=== PATIENT | male | born 1985 | race African-American/Black ===

== ENCOUNTER 2016-12-10 21:57 | Emergency (ER) | payer OTHER ==
[2016-12-10 22:04] VITALS: RESP 20
[2016-12-10] MEDS ORDERED: ONDANSETRON ODT 4 MG TAB PO STA (22:28)
[2016-12-10] MEDS ORDERED: IBUPROFEN 600 MG TAB PO STA (22:28)
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
--- NOTE | 2016-12-10 22:55 | XR ---
EXAM: XR Chest, 2 Views. CLINICAL HISTORY: Reason: Pain TECHNIQUE: Frontal and lateral views of the chest. COMPARISON: No relevant prior studies available. FINDINGS: Lungs: Lungs are clear. Pleural space: No evidence of pleural effusion or pneumothorax. Heart: Heart size is within normal limits. Mediastinum: Mediastinal structures are within normal limits. Bones/joints: Imaged bony thorax is unremarkable. IMPRESSION: No evidence of active chest disease.
[2016-12-10 23:41] VITALS: BP 123/56; PULSE 101; TEMP 101
== END 2016-12-10 23:39 | disposition home or self-care (01) ==
LOC: EC 21:57
DX: J02.9 Acute pharyngitis, unspecified (principal); R11.0 Nausea; F17.200 Nicotine dependence, unspecified, uncomplicated
CPT/HCPCS: 71020; 87081; 87430; 87502; 99283

== ENCOUNTER → 2018-10-20 | Outpatient (CLI) | payer OTHER ==
--- NOTE | 2018-10-20 23:36 | MR ---
EXAMINATION TYPE: MR lumbar spine wo/w con DATE OF EXAM: 10/20/2018 COMPARISON: None HISTORY: Low back pain TECHNIQUE: Multiplanar, multisequence images of the lumbar spine were acquired utilizing [address] gadolinium contrast. Lumbar vertebra have normal alignment. There is slight narrowing and decreased signal in the disc at L5-S1. There is posterior disc herniation at L5-S1 in the midline. There is slight effacement of the thecal sac. There is developmentally adequate canal and no significant spinal stenosis. The neural fo ramina are fairly well-maintained. Lumbar nerve roots appear normal. There is no compression fracture . There is no paraspinal mass. I see no focal bone destruction. Contrast images show no pathologic enhancement. IMPRESSION: Moderate posterior L5-S1 lumbar disc herniation. No spinal stenosis. There is developmentally large s marcia canal. No fracture.
== END | disposition home or self-care (01) ==
LOC: RADMRIMAIN 13:12
PROVIDERS: ATTEND Family Medicine
DX: M51.27 Other intervertebral disc displacement, lumbosacral region (principal)
CPT/HCPCS: 72158; A9585

== ENCOUNTER 2022-12-23 20:56 | Emergency (ER) | payer OTHER ==
[2022-12-23 21:00] VITALS: TEMP 98.2
--- NOTE | 2022-12-23 21:23 | XR ---
EXAMINATION TYPE: XR hand complete RT, XR wrist complete RT DATE OF EXAM: 12/23/2022 9:11 PM INDICATION: Patient age:Male; 37 years old; Reason for study: pain; COMPARISON: None TECHNIQUE: Frontal, lateral and oblique views of the right hand and wrist were obtained. FINDINGS: Normal alignment of the visualized joints. No acute osseous pathology is identified. No e vidence of soft tissue swelling. There area 2 tubular structures are present in the anterior aspect of the medial wrists projecting ov er the ulnar head as well as another piece projecting over the first metacarpal anteriorly. IMPRESSION: 1. No acute osseous pathology. 2. 2 tubular structures correlate for radiopaque foreign bodies.
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
[2022-12-23] MEDS ORDERED: KETOROLAC 15 MG/ML 1 ML VIAL IM STA (21:49)
[2022-12-23 22:06] VITALS: BP 160/80; PULSE 68; RESP 16
== END 2022-12-23 22:11 | disposition home or self-care (01) ==
LOC: EC 20:56
DX: M25.531 Pain in right wrist (principal); J45.909 Unspecified asthma, uncomplicated; F17.200 Nicotine dependence, unspecified, uncomplicated; F12.90 Cannabis use, unspecified, uncomplicated
CPT/HCPCS: 73110; 73130; 99283; 96372; 29125; J1885

== ENCOUNTER → 2023-10-15 | Outpatient (CLI) | payer OTHER ==
--- NOTE | 2023-10-16 08:47 | NM ---
EXAMINATION TYPE: NM hepatobiliary wo EF DATE OF EXAM: 10/15/2023 3:23 PM COMPARISON: None CLINICAL INDICATION:Male, 38 years old with history of R10.11 RUQ pain; TECHNIQUE: The patient was given 5.2 mCi of Technetium 99m-Mebrofenin as a radiotracer and multiple scintigraphic images were obtained of the abdomen. Gallbladder function was also assessed after the a dministration of ensure drink and additional scintigraphic images were obtained of the abdomen. A reg ion of interest was drawn over the gallbladder and a timing activity curve was generated. The gallbla dder ejection fraction was calculated. FINDINGS: Normal uptake of radiotracer was identified within the liver with excretion into the hepatic and comm on biliary ducts and small bowel at 6 minutes the gallbladder is never definitively visualized. IMPRESSION: The gallbladder was not visualized at the end of 60 minutes. Radiotracer was washed out of the liver and the patient had to leave. The exam was terminated at that time. Cholecystitis is not ruled out.
== END | disposition home or self-care (01) ==
LOC: RADNMMAIN 12:53
PROVIDERS: ATTEND Family Medicine
DX: R93.2 Abnormal findings on diagnostic imaging of liver and biliary tract (principal); R10.11 Right upper quadrant pain
CPT/HCPCS: 78226; A9537

== ENCOUNTER 2023-12-04 10:58 | Emergency (ER) | payer OTHER ==
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
[2023-12-04] MEDS: SODIUM CHLORIDE 0.9% 1,000 ML IV STA (11:24)
[2023-12-04] MEDS: KETOROLAC 15 MG/ML 1 ML VIAL IVP STA ×2 (11:32→15:37)
[2023-12-04] MEDS: HYDROmorphone 0.5 MG/0.5 ML SYRINGE IVP STA ×2 (11:37→15:38)
[2023-12-04 11:48] LABS: Basophils % (A) 0 %; Eosinophils # (A) 0.5 k/uL (0-0.7); Eosinophils % (A) 4 %; HGB 15.6 gm/dL (13.0-17.5); Lymphocytes # (A) 1.8 k/uL (1.0-4.8); Lymphocytes % (A) 16 %; MCH 27.7 pg (25.0-35.0); MCHC 31.9 g/dL (31.0-37.0); MCV 86.9 fL (80.0-100.0); Mean Platelet Volume 7.9; Monocytes # (A) 0.3 k/uL (0-1.0); Monocytes % (A) 3 %; Neutrophils # (A) 8.3 k/uL (1.3-7.7); Neutrophils % (A) 75 %; Platelet Count 287 k/uL (150-450); RBC 5.64 m/uL (4.30-5.90); RDW 13.8 % (11.5-15.5); WBC 11.2 k/uL (3.8-10.6)
[2023-12-04 11:55] LABS: Appearance,Urine Clear (Clear); Bilirubin,Urine Negative (Negative); Blood,Urine Trace (Negative); Color,Urine Yellow; Glucose,Urine (UA) Negative (Negative); Ketones,Urine Negative (Negative); Leukocyte Esterase,Urine Small (Negative); Mucus,Urine Few /hpf; Nitrite,Urine Negative (Negative); Protein,Urine Trace (Negative); RBC,Urine 1 /hpf (0-5); Specific Gravity,Urine 1.024 (1.001-1.035); Squamous Epithelial Cell,Urine 1 /hpf (0-4); Urobilinogen,Urine <2.0 mg/dL (<2.0); WBC,Urine 13 /hpf (0-5)
[2023-12-04 12:05] LABS: ALT 24 U/L (4-49); African American GFR (CKD) >90 (>60 ml/min/1.73 sqM); Albumin 4.3 g/dL (3.5-5.0); Amylase 54 U/L (30-110); Anion Gap 10 mmol/L; Blood Urea Nitrogen 9 mg/dL (9-20); Calcium 9.6 mg/dL (8.4-10.2); Carbon Dioxide 21 mmol/L (22-30); Chloride 106 mmol/L (98-107); Glucose 124 mg/dL (74-99); Lipase 31 U/L (23-300); Non-African American GFR(CKD) >90 (>60 ml/min/1.73 sqM); Sodium 137 mmol/L (137-145); Total Bilirubin 0.7 mg/dL (0.2-1.3); Total Protein 7.2 g/dL (6.3-8.2)
[2023-12-04 12:24] LABS: AST 31 U/L (17-59); Alkaline Phosphatase 83 U/L (38-126); Potassium 4.9 mmol/L (3.5-5.1)
--- NOTE | 2023-12-04 12:54 | US ---
EXAMINATION TYPE: US gallbladder DATE OF EXAM: 12/04/2023 COMPARISON: ID 10/15/2023 CLINICAL INDICATION: Male, 38 years old with history of RUQ pain; RUQ pain. TECHNIQUE: Multiple sonographic images of the right upper quadrant are obtained. FINDINGS: EXAM MEASUREMENTS: Liver Length: 16.3 cm Gallbladder Wall: 0.25 cm CBD: 0.36 cm Right Kidney: 13.1 x 6.7 x 4.6 cm FIBRE CEMENT MOULDER NOTES: Limited due to gas. Pancreas: Not well seen. Liver: Coarse in echotexture. Gallbladder: Appears hydropic measuring 11.0 cm in length. Multiple gallstones near the gallbladder neck. Evidence for sonographic Olguin's sign: Multiple hyperechoic foci with posterior shadowing seen within the neck, largest measures 1.1 x 1.3 x 0.8 cm. CBD: Appears wnl Right Kidney: Enlarged. IMPRESSION: Hydropic gallbladder with multiple gallstones in the gallbladder neck measuring up to 13 mm.
[2023-12-04 16:13] VITALS: BP 136/68; PULSE 87; RESP 18; TEMP 98
== END 2023-12-04 15:50 | disposition home or self-care (01) ==
LOC: EC 10:58
DX: K80.70 Calculus of gallbladder and bile duct without cholecystitis without obstruction (principal); F17.210 Nicotine dependence, cigarettes, uncomplicated
CPT/HCPCS: 36415; 80053; 82150; 83605; 83690; 85025; 81001; 76705; 99406; 99285; 96374; 96375; 96376 ×2; 96361; J1885; J1170

== ENCOUNTER 2024-01-13 18:09 | Emergency (ER) | payer OTHER ==
[2024-01-13 18:32] VITALS: BP 138/81; PULSE 131; RESP 18; TEMP 99.4
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
== END 2024-01-13 19:11 | disposition left against medical advice (07) ==
LOC: EC 18:09
DX: J02.9 Acute pharyngitis, unspecified (principal); F17.200 Nicotine dependence, unspecified, uncomplicated; F12.90 Cannabis use, unspecified, uncomplicated; Z53.29 Procedure and treatment not carried out because of patient's decision for other reasons
CPT/HCPCS: 87636; 87651; 99283

== ENCOUNTER 2024-03-11 21:19 | Emergency (ER) | payer OTHER ==
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
[2024-03-11] MEDS: SODIUM CHLORIDE 0.9% 1,000 ML IV STA (22:20)
[2024-03-11] MEDS: MORPHINE SULFATE 4 MG/ML SYRINGE IVP STA (22:20)
[2024-03-11] MEDS: KETOROLAC 15 MG/ML 1 ML VIAL IVP STA (22:20)
[2024-03-11 22:40] LABS: Basophils % (A) 0 %; Eosinophils # (A) 0.4 k/uL (0-0.7); Eosinophils % (A) 5 %; HCT 43.6 % (39.0-53.0); HGB 14.2 gm/dL (13.0-17.5); Lymphocytes # (A) 1.6 k/uL (1.0-4.8); Lymphocytes % (A) 19 %; MCH 29.1 pg (25.0-35.0); MCHC 32.6 g/dL (31.0-37.0); Mean Platelet Volume 7.6; Monocytes # (A) 0.5 k/uL (0-1.0); Monocytes % (A) 6 %; Neutrophils # (A) 5.5 k/uL (1.3-7.7); Neutrophils % (A) 68 %; Platelet Count 284 k/uL (150-450); WBC 8.2 k/uL (3.8-10.6)
[2024-03-12 00:12] LABS: ALT 23 U/L (4-49); AST 22 U/L (17-59); African American GFR (CKD) >90 (>60 ml/min/1.73 sqM); Albumin 3.9 g/dL (3.5-5.0); Alkaline Phosphatase 74 U/L (38-126); Amylase 48 U/L (30-110); Anion Gap 4 mmol/L; Blood Urea Nitrogen 13 mg/dL (9-20); Calcium 8.8 mg/dL (8.4-10.2); Carbon Dioxide 26 mmol/L (22-30); Chloride 110 mmol/L (98-107); Glucose 110 mg/dL (74-99); Lipase 85 U/L (23-300); Non-African American GFR(CKD) >90 (>60 ml/min/1.73 sqM); Potassium 4.2 mmol/L (3.5-5.1); Sodium 140 mmol/L (137-145); Total Bilirubin 0.3 mg/dL (0.2-1.3); Total Protein 6.4 g/dL (6.3-8.2)
[2024-03-12] MEDS: HYDROmorphone 1 MG/ML 1 ML SYRINGE IVP STA (01:35)
--- NOTE | 2024-03-12 01:58 | US ---
EXAM: US Abdomen Limited, Gallbladder CLINICAL HISTORY: ITS.REASON US Reason: RUQ pain TECHNIQUE: Real-time ultrasound of the right upper quadrant with image documentation. COMPARISON: Ultrasound gallbladder: 12/04/2023. FINDINGS: Gallbladder: Normal Wall thickness: 2.3 mm.. Redemonstrated multiple intraluminal gallstones/cholelithiasis. Reported negative sonographic Olguin sign. Common bile duct: Mildly dilated : 5.5 mm in diameter.. No stones. Pancreas: Unremarkable as visualized. The tail of the pancreas is obscured by bowel gas. Other findings: Liver measures 16.7 cm in length. Coarsened parenchymal echotexture, concerning for chronic liver disease in the appropriate clinical context. Right kidney measures 13.1 x 5.6 x 4.2 cm in size. No hydronephrosis or discernible mass. No obvious calculi.. IMPRESSION: Cholelithiasis. Normal bladder wall thickness. Reported negative sonographic Olguin sign. Borderline/mildly enlarged CBD: 5.5 mm in diameter. Coarsened liver parenchymal echotexture, concerning for chronic liver disease. Clinical correlation recommended. An enlarged right kidney. No hydronephrosis or obvious calculi.. .
[2024-03-12 03:04] VITALS: BP 145/88; PULSE 67; RESP 18; TEMP 98.2
== END 2024-03-12 03:01 | disposition home or self-care (01) ==
LOC: EC 21:19
DX: K80.70 Calculus of gallbladder and bile duct without cholecystitis without obstruction (principal); F17.200 Nicotine dependence, unspecified, uncomplicated
CPT/HCPCS: 36415; 80053; 82150; 83605; 83690; 85025; 76705; 99284; 96374; 96375 ×2; 96361; J2270; J1170; J1885

== ENCOUNTER 2024-05-04 13:57 | Emergency (ER) | payer OTHER ==
[2024-05-04 14:09] VITALS: RESP 18
[2024-05-04] MEDS: IBUPROFEN 600 MG TAB PO STA (14:27)
[2024-05-04] MEDS: ACETAMINOPHEN TAB 500 MG TAB PO STA (14:28)
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
[2024-05-04 16:32] VITALS: BP 129/77; PULSE 91; TEMP 98.9
== END 2024-05-04 16:33 | disposition home or self-care (01) ==
LOC: EC 13:57
CPT/HCPCS: 36415; 86308; 87651; 99283

== ENCOUNTER 2024-05-10 08:39 | Emergency (ER) | payer OTHER ==
[2024-05-10] MEDS: HYDROmorphone 0.5 MG/0.5 ML SYRINGE IVP STA (09:08)
[2024-05-10] MEDS: SODIUM CHLORIDE 0.9% 1,000 ML IV STA (09:11)
[2024-05-10] MEDS: KETOROLAC 15 MG/ML 1 ML VIAL IVP STA (09:12)
[2024-05-10] MEDS: HYDROmorphone 1 MG/ML 1 ML SYRINGE IVP STA (09:13)
[2024-05-10 09:38] LABS: Basophils # (A) 0.1 k/uL (0-0.2); Basophils % (A) 1 %; Eosinophils # (A) 0.5 k/uL (0-0.7); Eosinophils % (A) 4 %; HCT 45.9 % (39.0-53.0); HGB 14.6 gm/dL (13.0-17.5); Lymphocytes # (A) 1.9 k/uL (1.0-4.8); Lymphocytes % (A) 16 %; MCH 28.1 pg (25.0-35.0); MCHC 31.8 g/dL (31.0-37.0); MCV 88.2 fL (80.0-100.0); Mean Platelet Volume 7.4; Monocytes # (A) 0.4 k/uL (0-1.0); Monocytes % (A) 4 %; Neutrophils % (A) 74 %; Platelet Count 333 k/uL (150-450); RDW 13.5 % (11.5-15.5); WBC 12.1 k/uL (3.8-10.6)
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
[2024-05-10 09:53] LABS: ALT 21 U/L (4-49); AST 24 U/L (17-59); African American GFR (CKD) >90 (>60 ml/min/1.73 sqM); Albumin 4.1 g/dL (3.5-5.0); Alkaline Phosphatase 75 U/L (38-126); Amylase 43 U/L (30-110); Anion Gap 6 mmol/L; Blood Urea Nitrogen 13 mg/dL (9-20); Calcium 9.3 mg/dL (8.4-10.2); Carbon Dioxide 32 mmol/L (22-30); Chloride 106 mmol/L (98-107); Glucose 147 mg/dL (74-99); Lipase 42 U/L (23-300); Non-African American GFR(CKD) 90 (>60 ml/min/1.73 sqM); Potassium 4.5 mmol/L (3.5-5.1); Sodium 144 mmol/L (137-145); Total Bilirubin 0.3 mg/dL (0.2-1.3); Total Protein 6.9 g/dL (6.3-8.2)
--- NOTE | 2024-05-10 10:10 | US ---
EXAMINATION TYPE: US gallbladder DATE OF EXAM: 05/10/2024 COMPARISON: US 2023 CLINICAL INDICATION: Male, 38 years old with history of RUQ pain; TECHNIQUE: Multiple sonographic images of the right upper quadrant are obtained. FINDINGS: EXAM MEASUREMENTS: Liver Length: 15.3 cm Gallbladder Wall: 0.2 cm CBD: 0.4 cm Right Kidney: 9.8 x 4.6 x 5.5 cm Pancreas: visualized portions wnl, limited by overlying midline bowel gas Liver: course echotexture Gallbladder: cholelithiasis. No abnormal distention, shadowing stones, or surrounding fluid. Evidence for sonographic Olguin's sign: no CBD: wnl Right Kidney: visualized portions wnl, upper pole and lower pole limited by overlying bowel gas . No hydronephrosis. IMPRESSION: No gallstones or biliary ductal dilatation. No specific sonographic abnormality seen along the right upper quadrant.
[2024-05-10] MEDS: ACET/COD 300 MG/30 MG STARTER PACK 6 TAB BTL PO STA (11:26)
[2024-05-10 11:36] VITALS: BP 144/87; PULSE 61; RESP 18; TEMP 98
== END 2024-05-10 11:35 | disposition home or self-care (01) ==
LOC: EC 08:39
CPT/HCPCS: 36415; 76705; 80053; 82150; 83605; 83690; 85025; 96361; 96374; 96375; 96376; 99284

== ENCOUNTER 2024-09-01 05:07 | Emergency (ER) | payer OTHER ==
[2024-09-01] MEDS: SODIUM CHLORIDE 0.9% 1,000 ML IV STA (05:38)
[2024-09-01] MEDS: MORPHINE SULFATE 4 MG/ML SYRINGE IVP STA (05:39)
[2024-09-01] MEDS: KETOROLAC 15 MG/ML 1 ML VIAL IVP STA (05:39)
[2024-09-01] MEDS: ONDANSETRON 4 MG/2 ML VIAL IVP STA (05:39)
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
[2024-09-01 08:02] LABS: Appearance,Urine Cloudy (Clear); Bilirubin,Urine Negative (Negative); Blood,Urine Negative (Negative); Color,Urine Colorless; Glucose,Urine (UA) Negative (Negative); Ketones,Urine Negative (Negative); Leukocyte Esterase,Urine Large (Negative); Mucus,Urine Rare /hpf; Nitrite,Urine Negative (Negative); PH, Urine 7.5 (5.0-8.0); Protein,Urine Negative (Negative); Specific Gravity,Urine 1.016 (1.001-1.035); Squamous Epithelial Cell,Urine <1 /hpf (0-4); Urobilinogen,Urine <2.0 mg/dL (<2.0); WBC,Urine 129 /hpf (0-5)
--- NOTE | 2024-09-01 08:49 | US ---
EXAMINATION TYPE: US gallbladder DATE OF EXAM: 09/01/2024 COMPARISON: 05/10/24 CLINICAL INDICATION: Male, 39 years old with history of abdominal pain; RUQ pain, hx of gallstones TECHNIQUE: Grayscale and color Doppler imaging of the right upper quadrant was performed. FINDINGS: EXAM MEASUREMENTS: Liver Length: 13.3 cm Gallbladder Wall: 0.2 cm CBD: 0.2 cm Right Kidney: 11.0 x 5.1 x 4.6 cm B[facility] TANNER NOTES: Pancreas: parts seen appear wnl Liver: heterogeneous Gallbladder: gallstones seen in neck Evidence for sonographic Olguin's sign: No CBD: wnl Right Kidney: wnl IMPRESSION: 1. Cholelithiasis [facility], , 09/01/2024 8:46 AM
[2024-09-01 08:54] LABS: Basophils # (A) 0.1 k/uL (0-0.2); Basophils % (A) 1 %; Eosinophils # (A) 0.2 k/uL (0-0.7); Eosinophils % (A) 2 %; HCT 44.3 % (39.0-53.0); HGB 14.4 gm/dL (13.0-17.5); Lymphocytes # (A) 1.5 k/uL (1.0-4.8); Lymphocytes % (A) 15 %; MCH 28.4 pg (25.0-35.0); MCHC 32.5 g/dL (31.0-37.0); MCV 87.5 fL (80.0-100.0); Mean Platelet Volume 7.4; Monocytes # (A) 0.3 k/uL (0-1.0); Monocytes % (A) 3 %; Neutrophils # (A) 7.8 k/uL (1.3-7.7); Neutrophils % (A) 78 %; Platelet Count 290 k/uL (150-450); RBC 5.06 m/uL (4.30-5.90); RDW 13.7 % (11.5-15.5); WBC 10.1 k/uL (3.8-10.6)
[2024-09-01 09:14] LABS: ALT 24 U/L (4-49); AST 19 U/L (17-59); African American GFR (CKD) >90 (>60 ml/min/1.73 sqM); Albumin 4.1 g/dL (3.5-5.0); Alkaline Phosphatase 80 U/L (38-126); Amylase 48 U/L (30-110); Anion Gap 4 mmol/L; Blood Urea Nitrogen 13 mg/dL (9-20); Calcium 9.3 mg/dL (8.4-10.2); Carbon Dioxide 30 mmol/L (22-30); Chloride 106 mmol/L (98-107); Glucose 120 mg/dL (74-99); Lipase 39 U/L (23-300); Non-African American GFR(CKD) >90 (>60 ml/min/1.73 sqM); Potassium 4.2 mmol/L (3.5-5.1); Sodium 140 mmol/L (137-145); Total Bilirubin <0.1 mg/dL (0.2-1.3); Total Protein 6.7 g/dL (6.3-8.2)
[2024-09-01] MEDS: HYDROcodone/APAP 5-325MG 1 EACH TAB PO STA (09:55)
[2024-09-01 09:58] VITALS: BP 157/82; PULSE 88; RESP 20; TEMP 98.1
== END 2024-09-01 09:58 | disposition home or self-care (01) ==
LOC: EC 05:07
DX: N39.0 Urinary tract infection, site not specified (principal); K52.9 Noninfective gastroenteritis and colitis, unspecified; K59.00 Constipation, unspecified; K80.10 Calculus of gallbladder with chronic cholecystitis without obstruction; K85.90 Acute pancreatitis without necrosis or infection, unspecified; N20.1 Calculus of ureter; F17.200 Nicotine dependence, unspecified, uncomplicated
CPT/HCPCS: 36415; 80053; 82150; 83690; 85025; 81001; 76705; 99284; 96374; 96375; 96361; J2270; J2405; J1885